=== PATIENT | female | born 1945 | race African-American/Black ===

== ENCOUNTER 2016-11-05 13:31 | Emergency (ER) | payer OTHER ==
[2016-11-05 13:42] VITALS: BMI 30.7
[2016-11-05] MEDS ORDERED: ONDANSETRON 4 MG/2 ML VIAL ONE (14:30)
[2016-11-05] MEDS ORDERED: ONDANSETRON 4 MG/2 ML VIAL IVPUSH ONE (14:30)
--- NOTE | 2016-11-05 14:33 | PDOC ---
History of Present Illness - General Chief Complaint: Chronic pain Stated Complaint: NAUSEA Time Seen by Provider: 11/05/16 14:29 History Source: Patient - History of Present Illness Timing/Duration: reports: constant Past History - Past Medical History Allergies/Adverse Reactions: Allergies Allergy/AdvReac Type Severity Reaction Status Date / Time insulin glargine, human Allergy Intermediate Rash Verified 11/05/16 13:36 recombin. a [From Lantus] Penicillins Allergy Rash Verified 11/05/16 13:36 Home Medications: Ambulatory Orders Albuterol Sulfate Inhaler - [Ventolin HFA Inhaler -] 2 inh PO Q4H PRN #1 inh 11/08 Aspirin Coated [Ecotrin -] 81 mg PO DAILY tablet.ec 10/22/16 Atorvastatin Ca [Lipitor] 20 mg PO HS #30 tablet 10/22/16 Budesonide/Formeterol Fumarate [SYMBICORT 160/4.5mcg -] 2 puff IH BID #1 inhaler 10/22/16 Carvedilol [Coreg -] 25 mg PO BID #60 tablet 10/22/16 Hydralazine HCl [Apresoline -] 50 mg PO BID #120 tablet 10/22/16 Insulin (Levemir) [Levemir Vial] 2 units SQ HS #0 ml 10/22/16 Nifedipine [Procardia Xl] 90 mg PO DAILY #30 tab.er.24 10/22/16 Ranitidine [Zantac -] 150 mg PO DAILY #60 tablet 10/22/16 Ranolazine [Ranexa -] 500 mg PO BID #60 tab 10/22/16 Torsemide [Demadex -] 40 mg PO DAILY #60 tablet 10/22/16 Valsartan [Diovan] 160 mg PO DAILY #30 tablet 10/22/16 Diphenhydramine HCl 25 mg PO Q6H PRN tablet 11/02/16 Mag Hydrox/Al Hydrox/Simeth [Magnesium-Aluminum Suspension] 30 ml PO Q6H PRN 08/09 Polyethylene Glycol 3350 [Miralax] 17 gm PO DAILY 11/02/16 Ranitidine HCl 150 mg PO DAILY tablet 11/02/16 Sitagliptin Phosphate [Januvia] 25 mg PO DAILY tablet 11/02/16 Ondansetron HCl [Zofran] 4 mg PO Q8H #12 tablet 11/05/16 Pantoprazole Sodium [Protonix -] 40 mg PO DAILY #30 tablet.ec 11/05/16 Anemia: No Asthma: No Cancer: No Cardiac Disorders: No CVA: Yes (TIA 08/2012) COPD: No CHF: No Dementia: No Diabetes: Yes GI Disorders: Yes (constipation) Disorders: No HTN: Yes Hypercholesterolemia: Yes Liver Disease: No Suicide Attempt (Hx): No Seizures: No Thyroid Disease: Yes - Surgical History Abdominal Surgery: No Appendectomy: No Cardiac Surgery: No Cholecystectomy: No Lung Surgery: No Neurologic Surgery: No Orthopedic Surgery: Yes (RIGHT HIP replacement 2007) - Immunization History Immunization Up to Date: Yes - Psycho/Social/Smoking Cessation Hx Anxiety: No Suicidal Ideation: No Smoking Status: No Smoking History: Former smoker Have you smoked in the past 12 months: No Number of Cigarettes Smoked Daily: 0 If you are a former smoker, when did you quit?: 2006 Information on smoking cessation initiated: No Hx Alcohol Use: No Drug/Substance Use Hx: No Substance Use Type: None Hx Substance Use Treatment: No Review of Systems - Review of Systems Constitutional: No: Chills, Fever Respiratory: No: Shortness of Breath Cardiac (ROS): No: Chest Pain ABD/GI: Yes: Constipated, Nausea, Vomiting. No: Diarrhea, Rectal Bleeding, Abdominal cramping, Tarry Stools : No: Dysuria, Hematuria *Physical Exam - Vital Signs Last Vital Signs Temp Pulse Resp BP Pulse Ox 98.0 F 71 16 140/63 98 11/05/16 13:37 11/05/16 13:37 11/05/16 13:37 11/05/16 13:37 11/05/16 13:37 - Physical Exam General Appearance: Yes: Appropriately Dressed. No: Apparent Distress HEENT: positive: Normal Voice Neck: positive: Supple Respiratory/Chest: positive: Lungs Clear, Normal Breath Sounds. negative: Respiratory Distress Cardiovascular: positive: Regular Rate, S1, S2 Gastrointestinal/Abdominal: positive: Soft. negative: Tender Musculoskeletal: negative: CVA Tenderness Integumentary: positive: Dry, Warm Neurologic: positive: Fully Oriented, Alert, Normal Mood/Affect ED Treatment Course - LABORATORY CBC & Chemistry Diagram: 11/05/16 14:13 11/05/16 14:13 - RADIOLOGY Radiology Studies Ordered: Category Date Time Status ABDOMEN-KUB FLAT PLATE [RAD] Stat Radiology 11/05/16 14:29 Ordered Medical Decision Making - Medical Decision Making 71 y/o female with PMHx of HTN, HKD, NIDDM, hypothyroidism, CVA, CKD stage III, sepsis, constipation on miralax, p/w n/v x 3 days, mostly in the am as per pt. No abd pain, change in BM, dysuria, chest pain, sob, f/c. Last BM was this am. pt states she was being [facility] and sent to ED to r/o worsening kidney failure See exam N/v unclear etiology at this time Stable w/ unremarkable exam Will r/o metabolic vs infectious, less likely cardiac -zofran -labs 11/05/16 16:25 Labs unremarkable, cr baseline for pt. Pt improved w/ meds and a/w po trial 11/05/16 16:44 Patient able to tolerate po and reports feeling better at this time. Requesting refill of her pantoprazole. Patient discharged in stable conditions with strict return precautions given *DC/Admit/Observation/Transfer Diagnosis at time of Disposition: Nausea & vomiting Qualifiers: Vomiting type: unspecified Vomiting Intractability: non-intractable Qualified Code(s): R11.2 - Nausea with vomiting, unspecified - Discharge Dispostion Disposition: HOME Condition at time of disposition: Improved - Prescriptions Prescriptions: Pantoprazole Sodium [Protonix -] 40 mg PO DAILY #30 tablet.ec Ondansetron HCl [Zofran] 4 mg PO Q8H #12 tablet - Patient Instructions Printed Discharge Instructions: Nausea and Vomiting-Adult Additional Instructions: Return for worsening of symptoms, otherwise follow with your doctors
[2016-11-05 14:40] LABS: BASOPHIL 0.8 % (0-2.0); EOSINOPHIL 1.8 % (0-4.5); MCH 22.6 pg (25.7-33.7); MCHC 31.8 g/dl (32.0-36.0); MEAN CELL VOLUME 71.2 fl (80-96); MEAN PLT VOLUME 8.1 fl (7.5-11.1); NEUTROPHILS 76.5 % (42.8-82.8); PLATELET COUNT 246 K/MM3 (134-434); RDW 17.1 % (11.6-15.6); WHITE BLOOD COUNT 8.7 K/mm3 (4.0-10.0)
[2016-11-05 15:06] LABS: BILIRUBIN,TOTAL 0.3 mg/dL (0.2-1.0); CALCIUM 8.1 mg/dL (8.5-10.1); CREATININE 2.6 mg/dL (0.55-1.02); TROPONIN I 0.04 ng/ml (0.00-0.05)
[2016-11-05 17:07] VITALS: BP 147/60; PULSE 73; TEMP 98.6
--- NOTE | 2016-11-06 16:23 | EKG ---
Test Reason : Blood Pressure : / mmHG Vent. Rate : 066 BPM Atrial Rate : 066 BPM P-R Int : 178 ms QRS Dur : 100 ms QT Int : 434 ms P-R-T Axes : 049 -14 079 degrees QTc Int : 454 ms NORMAL SINUS RHYTHM NORMAL ECG WHEN COMPARED WITH ECG OF 13-OCT-2016 09:00, CRITERIA FOR ANTERIOR INFARCT ARE NO LONGER PRESENT NO SIGNIFICANT CHANGE WAS FOUND Confirmed by MORENITA GIL MD ([id number]) on 11/06/2016 4:22:58 PM Referred By: Confirmed By:MORENITA GIL MD
== END 2016-11-05 17:31 | disposition home or self-care (01) ==
LOC: JER 13:31
PROC: 3E033GC Introduction of Other Therapeutic Substance into Peripheral Vein, Percutaneous Approach (ICD-10-PCS; principal; 2016-11-05)
DX: R11.2 Nausea with vomiting, unspecified (principal); I12.9 Hypertensive chronic kidney disease with stage 1 through stage 4 chronic kidney disease, or unspecified chronic kidney disease; N18.3 Chronic kidney disease, stage 3 (moderate); E11.9 Type 2 diabetes mellitus without complications; Z79.4 Long term (current) use of insulin; Z79.84 Long term (current) use of oral hypoglycemic drugs; E03.9 Hypothyroidism, unspecified; Z86.73 Personal history of transient ischemic attack (TIA), and cerebral infarction without residual deficits
CPT/HCPCS: 36415; 74000-TC; 80053; 82550; 84484; 85025; 93005; 93010; 99284-25